=== PATIENT | female | born 2000 | race Caucasian/White ===

== ENCOUNTER 2020-06-29 19:33 | Day surgery (SDC) | payer SELFPAY ==
[2020-06-29 20:03] VITALS: BP 120/62; TEMP 98.4; BMI 22.6
[2020-06-29] MEDS ORDERED: hydrALAZINE 20 MG/ML VIAL SLOW IVP PRN (20:34)
[2020-06-29] MEDS ORDERED: Lactated Ringer's 1,000 ML IV SCH ×2 (21:00)
[2020-06-29 21:15] LABS: Bilirubin Negative (Negative); Blood, Urine Negative (Negative); Clarity Clear (Clear); Glucose, Urine (Dipstick) Normal (Negative); Ketone, Urine 10 mg/dL (Negative); Leukocyte 250 Leu/uL (Negative); Nitrite Negative (Negative); Protein, Urine (Dipstick) Negative (Neg-Trace); RBC/HPF 0-3 HPF (0-3); Renal Epithelial 0-3 HPF (None Seen); Squamous Epithelial 0-3 HPF (0-3); Urobilinogen Normal mg/dL (Less than 2); WBC/HPF 21-50 HPF (0-3)
[2020-06-29 21:22] LABS: Bacteria/HPF 1+ HPF (None Seen)
[2020-06-29 21:38] LABS: FFN Internal QC Analyzer PASS (PASS); FFN Internal QC Cassette PASS (PASS); Fetal Fibronectin Negative (Negative)
[2020-06-29] MEDS ORDERED: ceFAZolin 1 GM/D5W 1 GM in Premix Bag 1 BAG IVPB SCH (22:30)
--- NOTE | 2020-06-30 01:19 | SS ---
DATE OF ADMISSION: 06/29/2020 DATE OF DISCHARGE: 06/29/2020 REGULAR PHYSICIAN: Giovanny Lombardo MD EVALUATING PHYSICIAN: Yordan Car MD CHIEF COMPLAINT: Back pain. HISTORY OF PRESENT ILLNESS: Ms. Giordano is a 19-year-old white G5, P1, AB3 with an estimated date of confinement of 09/06/2020, who presents complaining of intermittent back pain since 3 p.m. She denies associated loss of fluid or vaginal bleeding. She was seen in [facility] and evaluated there and then came here by private automobile. Of note is the fact that she has had a single OB visit with Dr. Lombardo where she was given an antibiotic for a UTI but has not had it filled. PAST OBSTETRICAL HISTORY: Includes one previous section at 36 weeks reportedly with an with gastroschisis. She also reports she has had three early miscarriages. PAST MEDICAL HISTORY: None. PAST SURGICAL HISTORY: x1, as above. CURRENT MEDICATIONS: vitamins. ALLERGIES: NO KNOWN ALLERGIES. SOCIAL HISTORY: She smokes half a package per day. She denies alcohol or illicit drug use. FAMILY HISTORY: Unremarkable. REVIEW OF SYSTEMS: Denies nausea, vomiting, fever, chills, ruptured membranes, or vaginal bleeding. PHYSICAL EXAMINATION: VITAL SIGNS: In triage, her vital signs are stable and she is afebrile. GENERAL: She is pleasant and in no distress. ABDOMEN: Soft, nontender, and gravid. PELVIC: Examination shows the cervix to be closed, 50%, and posterior. heart rate tracing is stable with no decelerations. Initially, irregular uterine contractions were seen. LABORATORY DATA: Urinalysis shows a specific gravity of 1.010 with trace ketones, positive leukocyte esterase. On microscopic, she has had 0-3 squamous cells with 0-3 red cells and 21-50 WBCs with 1+ bacteria. The patient is given a fluid bolus and she was also given 1 g of Ancef IV. After administration of IV fluids, no significant contractions were seen. ASSESSMENT: 1. 30-1/7 weeks intrauterine . 2. Previous section. 3. Urinary tract infection. 4. Smoker. PLAN: The patient will be dismissed to home. The patient states that she was given antibiotics at Dr. Lombardo's office, but she is yet to have them filled for urinary tract infection. She was told to fill these as soon as possible and to begin the regimen. She was also cautioned regarding her smoking and was encouraged to stop. labor precautions were reviewed with her in detail. She states she has an appointment with Dr. Lombardo in the next week. Job ID: [id number] MTDD
== END 2020-06-29 22:47 | disposition home or self-care (01) ==
LOC: L&D/OP 19:33
PROVIDERS: ATTEND Family Medicine
DX: O99.891 Other specified diseases and conditions complicating pregnancy (principal); M54.5 Low back pain; O23.43 Unspecified infection of urinary tract in pregnancy, third trimester; O99.333 Smoking (tobacco) complicating pregnancy, third trimester; F17.210 Nicotine dependence, cigarettes, uncomplicated; O09.293 Supervision of pregnancy with other poor reproductive or obstetric history, third trimester; O34.219 Maternal care for unspecified type scar from previous cesarean delivery; Z3A.30 30 weeks gestation of pregnancy
CPT/HCPCS: 81003; 81015; 82731; 87086; 96361; 96365; 99284; J0690

== ENCOUNTER 2020-08-01 21:31 | Day surgery (SDC) | payer OTHER ==
[2020-08-01 22:23] VITALS: BP 113/59; TEMP 98.8; BMI 27.1
[2020-08-01] MEDS ORDERED: hydrALAZINE 20 MG/ML VIAL SLOW IVP PRN (22:59)
--- NOTE | 2020-08-01 23:02 | PDOC.FPROB ---
FMR OB H&P: HPI - History of Present Illness Chief Complaint: cramping Indentification: 19yo @ 34.6 presents for cramping History of Present Illness: 19yo @ 34.6 presents for cramping. Onset at 0300 last night, q15min cramping/ctx, stopped after a few hours. Onset again this afternoon q8-10min, ending about 1900. No current cramping/ctx. Does endorse lower abd pressure, urinary frequency. Denies dysuria/hematuria. No LOF, VB, VD. Denies fever/chills, n/v, CP, SOB, SINGH, vision changes. No recent intercourse. Primary Care Physician: [facility] H&P: Current - Care : 5 Para: 0131 Gestational age: 34.6 Due date: 09/06/20 - OB Labs Blood type: O RH: positive Antibody Screen: negative HIV: negative RPR: negative HepBsAg: negative Rubella: immune Urine drug screen: negative Gonorrhea: negative Chlamydia: negative 1 hour gtt: 99 GBS: positive [facility] OB H&P: History - Past Medical History PMH: Denies - OB History OB History: 3 spontaneous Ab's. delivery pLTCS for baby with gastroschisis. - [employer] History [employer] History: Denies - Surgical History Sx History: pLTCS - Social History Social History: Previous tob use during , has since quit. No EtOH or illicits. - Family History Family History: Denies [facility] OB H&P: Medications - Current Home Medications: Medication Instructions Recorded Confirmed Type Pnv No.103/Folic/Om3s/Fish Oil 1 tab PO DAILY 06/29/20 08/01/20 History [ Gummies] Allergies/Adverse Reactions: Allergies Allergy/AdvReac Type Severity Reaction Status Date / Time No Known Allergies Allergy Verified 08/01/20 22:16 [facility] OB H&P: ROS - Review of Systems General: denies: fever/chills, weight/appetite/sleep changes Eyes: denies: vision changes ENT: denies: nasal congestion, sore throat Cardiovascular: denies: chest pain Respiratory: denies: cough, congestion, shortness of breath Gastrointestinal: reports: cramping. denies: abdominal pain, nausea, vomiting, diarrhea, constipation Genitourinary (Female): reports: polyuria, contractions. denies: dysuria, hematuria, vaginal discharge, vaginal bleeding Musculoskeletal: denies: pain Integumentary: denies: rash [facility] OB H&P: Vital Signs - Maternal Vital signs: Vital Signs - First Documented Temp Pulse Resp BP 98.8 F 92 18 113/59 L 08/01/20 22:14 08/01/20 22:14 08/01/20 22:14 08/01/20 22:14 - Heart Tones Baseline: 130 Variability: moderate Acceleration: present Deceleration: absent Category: category 1 Snover contractions every: none FMR OB H&P: Physical Exam - Physical Exam General: NAD, awake, alert and oriented HEENT: MMM Neck: supple, trachea midline Heart: RRR, normal S1/S2, no murmurs/rubs/gallops, no edema General: CTAB, no respiratory distress, good air movement, no rales/rhonchi, no wheezing Abdomen: soft, gravid, non-tender, bowel sound present Musculoskeletal: FROM in all four extremities Neurological: no focal deficit Psychiatric: intact recent and remote memory, good judgement and insight, normal mood and affect - Pelvic Exam SVE: cl/th/high [facility]MR OB H&P: A/P - Problem List (1) Cramping affecting , antepartum Current Visit: Yes Status: Acute Code(s): O26.899 - OTH RELATED CONDITIONS, UNSPECIFIED TRIMESTER; R10.9 - UNSPECIFIED ABDOMINAL PAIN Disposition: 19yo @ 34.6 presents for cramping. #, SIUP, cramping - Planned rLTCS - Reassuring FHT, no ctx - Sxs of lower pelvic pressure, urinary frequency - will obtain UA - No recent intercourse, no change in VD - SVE closed/thick/high - No evidence of labor PCP: [facility]: No evidence of labor. Will check UA for UTI. Anticipate discharge home with labor precautions. Discussion: Date/Time: 08/01/20 2968 This H&P was discussed with Dr. Andrade who agrees with the above documentation and plan.
[2020-08-01 23:06] LABS: Bacteria/HPF None Seen HPF (None Seen); Bilirubin Negative (Negative); Blood, Urine Negative (Negative); Clarity Turbid (Clear); Glucose, Urine (Dipstick) Normal (Negative); Ketone, Urine Negative (Negative); Leukocyte 25 Leu/uL (Negative); Nitrite Negative (Negative); Protein, Urine (Dipstick) 20 mg/dL (Neg-Trace); RBC/HPF 0-3 HPF (0-3); Specific Gravity, Urine 1.021 (1.002-1.036); Squamous Epithelial 0-3 HPF (0-3); Urobilinogen 3 mg/dL (Less than 2); pH, Urine 6.5 (5.0-9.0)
--- NOTE | 2020-08-01 23:10 | PDOC.BPN ---
- Brief Progress Note Patient seen at bedside. I have dictated the H&P.
--- NOTE | 2020-08-01 23:20 | PDOC.BPN ---
- Brief Progress Note Encounter Date: 08/01/20 Encounter Time: 23:18 19yo @ 34.6 presented for cramping. #, SIUP, cramping - Planned rLTCS - Reassuring FHT, no ctx - Sxs of lower pelvic pressure, urinary frequency - UA positive for WBC and LE. Negative bacteria. SG 1.021. Encourage hydration, antibiotics, UCx. - No recent intercourse, no change in VD - SVE closed/thick/high - No evidence of labor PCP: [facility]: No evidence of labor. UA suspicious for UTI. All drug allergies. Macrobid sent in. Urine Culture ordered. Will call back to L&D for UCx results in 2 days. Labor and return precautions given. Patient voiced understanding and agreement. Eager for discharge home. All questions answered. Plan discussed with Dr. Andrade who agrees with the above documentation and plan.
--- NOTE | 2020-08-01 23:27 | PDOC.BPN ---
- Brief Progress Note Suspect UTI on UA. RX and send for culture. Follow up with
--- NOTE | 2020-08-01 23:36 | HP ---
TIME OF EVALUATION: 22:50. LOCATION: Labor and Delivery Triage. (LDR 2) This is a patient of Dr. Ba. EGA is 34 weeks and 6 days. CHIEF COMPLAINT: Pelvic pressure, but no real contractions. HISTORY OF PRESENT ILLNESS: This is a 19-year-old, G5, P1 with 3 previous spontaneous miscarriages, who is at 34 weeks and 6 days. She is here for lower pelvic pressure and a little bit of urinary frequency, but no real dysuria. She denies any fevers at home, vaginal bleeding, or leakage of fluid. She has some mild cramping, but denies any real contractions. She states that she had a in the past for gastroschisis and that baby is doing well. She denies any sick contacts or recent intercourse. She has good movement. REVIEW OF SYSTEMS: GENERAL: She denies trauma or any general malaise or sick contacts. RESPIRATORY: No shortness of breath. CHEST: No chest pain. ABDOMEN: No GI issues. EXTREMITIES: No unusual pain in the extremities or unusual swelling. OB: She has had 3 spontaneous miscarriages and one C section for gastroschisis. She is at 34 weeks and [address] Lombardo for care. She desires a repeat for this child and she has discussed that with Dr. Lombardo. PAST MEDICAL HISTORY: Negative. MEDICATIONS: vitamins. ALLERGIES: NONE. SURGICAL HISTORY: A for gastroschisis as previously dictated. SOCIAL HISTORY: Negative for alcohol, tobacco, and drug use. FAMILY HISTORY: Noncontributory. PHYSICAL EXAMINATION: VITAL SIGNS: Her blood pressure is 113/59, pulse is 82, temperature is 99. GENERAL: She is in no acute distress and resting comfortably. She does not appear to be in labor. ABDOMEN: Soft, nontender, and gravid and size consistent with dates. PELVIC: Exam shows no overt evidence of bleeding or leakage of fluid. : Cervical exam was performed by Jovana, the patient's nurse, while I was at bedside. She found her to be closed to fingertip at most, thick, and still high with no gross evidence of leakage. On external monitor, heart tones were reviewed by me and there was great variability with large accelerations. There was a moment of prolonged accelerations for about 6 to 7 minutes and then returned back down to baseline to about 140s to 150s, but there is no pathological deceleration. There is no real contractions on tocodynamometer, so the nonstress test is reactive. INTERVENTIONS ORDERED: I have ordered urinalysis and patient requests clean-catch instead of a cath. ASSESSMENT: 19-year-old, G5, P1, SAB 3 at 34 weeks and 6 days with a history of a previous section for gastroschisis here for lower pelvic pressure, but no real symptoms of contraction. PLAN: 1. I did not order a cervical length ultrasound as she is already close to 35 weeks and I do not suspect labor. 2. Cervix is closed. 3. I have ordered urinalysis and we will treat accordingly. 4. Follow up with Dr. Lombardo. Job ID: [id number]
== END 2020-08-01 23:22 | disposition home or self-care (01) ==
LOC: L&D/OP 21:31
PROVIDERS: ATTEND Family Medicine
DX: O26.893 Other specified pregnancy related conditions, third trimester (principal); R10.2 Pelvic and perineal pain; R35.0 Frequency of micturition; O09.293 Supervision of pregnancy with other poor reproductive or obstetric history, third trimester; O09.213 Supervision of pregnancy with history of pre-term labor, third trimester; O34.211 Maternal care for low transverse scar from previous cesarean delivery; Z3A.34 34 weeks gestation of pregnancy
CPT/HCPCS: 81001; 87086; 99283

== ENCOUNTER 2020-08-31 12:49 | Inpatient (IN) | payer OTHER ==
[2020-08-31] MEDS: Lactated Ringer's 1,000 ML IV SCH ×2 (12:45→23:21)
[~2020-08-31 12:49] MED LIST: Bicitra 30 ML UDCUP PO PRN; Famotidine/PF 20 mg/2ml Vial SLOW IVP PRN; Ondansetron PF 4 MG/2 ML Vial IVP PRN; Promethazine HCl 25 MG/ML VIAL IM PRN; hydrALAZINE 20 MG/ML VIAL SLOW IVP PRN
[2020-08-31] MEDS ORDERED: CEFAZOLIN 2 GM in Premix Bag 1 BAG IVPB SCH (13:15)
[2020-08-31 13:20] LABS: Hemoglobin 9.6 g/dL (12.0-16.0); Mean Corpuscular HGB CONC 33.2 g/dL (32.0-36.0); Mean Corpuscular Hemoglobin 25.1 pg (25.0-35.0); Mean Corpuscular Volume 75.6 fL (78.0-98.0); Mean Platelet Volume 10.5 fL (7.4-10.4); Platelet Count 177 thou/uL (130-400); RBC Distribution Width 14.8 % (11.5-14.5); Red Blood Cell (RBC) Count 3.81 mill/uL (4.00-5.20); White Blood Cell (WBC) Count 12.1 thou/uL (4.8-10.8)
[2020-08-31 13:58] LABS: HBSAg Index 0.25 S/CO (0-0.99); Hep B Surf Ag Non-Reactive S/CO (NonReactive)
[2020-08-31 14:01] LABS: Syphilis Antibody Nonreactive (Nonreactive); Syphilis Antibody Index 0.02 S/CO (<1.00 Non-Reactive)
[2020-08-31 14:15] VITALS: BMI 28.1
[2020-08-31] MEDS ORDERED: Oxytocin 10 UNITS/ML VIAL ONE (15:00)
[2020-08-31] MEDS ORDERED: Ketorolac Tromethamine 30 MG/ML VIAL ONE (15:00)
[2020-08-31] MEDS ORDERED: Ondansetron PF 4 MG/2 ML Vial ONE (15:00)
[2020-08-31] MEDS ORDERED: Dexamethasone 4 mg/ml Vial ONE (15:00)
[2020-08-31] MEDS ORDERED: Morphine PF 10 MG/10 ML VIAL ONE (15:00)
[2020-08-31] MEDS ORDERED: ePHEDrine 50 MG/ML VIAL ONE (15:00)
[2020-08-31] MEDS ORDERED: Meperidine HCl/PF 25 MG/ML VIAL SLOW IVP PRN ×2 (15:05→16:58)
[2020-08-31] MEDS ORDERED: Ketorolac Tromethamine 30 MG/ML VIAL IVP PRN (15:05)
[2020-08-31] MEDS ORDERED: Naloxone HCl 0.4 mg/ml Vial IVP PRN ×2 (15:05)
[2020-08-31] MEDS ORDERED: Ondansetron PF 4 MG/2 ML Vial IVP PRN ×2 (15:05→18:18)
[2020-08-31] MEDS ORDERED: Naloxone HCl 0.4 mg/ml Vial IV PRN (15:05)
[2020-08-31] MEDS ORDERED: HYDROmorphone 2 MG/ML VIAL SLOW IVP PRN ×2 (15:05→16:58)
[2020-08-31] MEDS ORDERED: Promethazine HCl 25 MG/ML VIAL IM PRN ×2 (15:05→18:18)
[2020-08-31] MEDS ORDERED: Ondansetron HCl/PF 4 MG/2 ML Vial IVP PRN ×2 (15:05→16:58)
[2020-08-31] MEDS ORDERED: Promethazine HCl 25 MG SUPP PR PRN (15:05)
[2020-08-31] MEDS ORDERED: diphenhydrAMINE 50 MG/ML VIAL IVP PRN (15:05)
[2020-08-31] MEDS ORDERED: L&D-Morphine 4 MG/ML VIAL SLOW IVP PRN ×2 (15:05→16:58)
[2020-08-31] MEDS ORDERED: Ketorolac Tromethamine 30 MG/ML VIAL IVP SCH ×2 (15:15→17:00)
[2020-08-31] MEDS ORDERED: Communication Order-Pharmacy FS SCH (15:15)
[2020-08-31] MEDS ORDERED: PHENYLEPHRINE-NS 100 MCG/ML 10 ML SYRINGE ONE (15:49)
[2020-08-31] MEDS ORDERED: NS w/ Oxytocin 30 units 500 ML ONE (17:30)
[2020-08-31] MEDS ORDERED: diphenhydrAMINE 50 MG/ML VIAL ONE (18:01)
[2020-08-31] MEDS ORDERED: Meperidine HCl/PF 25 MG/ML VIAL IM PRN (18:18)
[2020-08-31] MEDS ORDERED: NS / Oxytocin 40 units/1000ml 1,000 ML IV SCH (18:18)
[2020-08-31] MEDS ORDERED: hydrALAZINE 20 MG/ML VIAL SLOW IVP PRN (18:18)
[2020-08-31] MEDS ORDERED: Bisacodyl 10 MG SUPP PR PRN (18:18)
[2020-08-31] MEDS ORDERED: Lanolin Ointment 7 GM TUBE TOP PRN (18:18)
[2020-08-31] MEDS ORDERED: HYDROcodone/Acetaminophen 5/325 mg Tablet PO PRN (18:18)
[2020-08-31] MEDS ORDERED: diphenhydrAMINE 25 MG CAP PO PRN (18:18)
--- NOTE | 2020-08-31 19:11 | OP ---
DATE OF PROCEDURE: 08/31/2020 RESIDENT: Huong Mccoy MD. PROCEDURE: Repeat low-transverse section. PREOPERATIVE DIAGNOSES: 1. Term intrauterine . 2. Previous section. POSTOPERATIVE DIAGNOSES: 1. Term intrauterine , delivered. 2. Previous section. ANESTHESIA: Spinal QUANTITATIVE BLOOD LOSS: 189 mL SPECIMENS: Cord blood for blood type. FINDINGS: Placenta intact with three-vessel cord noted, discarded. Viable male with Apgars of 8 and 9 at one and five minutes of life respectively. Normal uterus, tubes, and ovaries. DRAINS: Moran to gravity draining clear urine. INDICATIONS: A 19-year-old, G5?, P0-1-0-1, at 39 and 1 weeks' gestation, presents to Labor and Delivery for scheduled repeat section. PROCEDURE IN DETAIL: After risks, benefits, and alternatives were explained to the patient, she gave informed consent. Preoperative antibiotics included cefazolin 2 g IV. The patient was taken to the operating room, where spinal anesthesia was initiated. She was placed in a supine position with a left tilt. She was prepped and draped in the usual sterile fashion. A time-out was performed per protocol. A Pfannenstiel incision was made with a scalpel and carried down to the level of the fascia, which was sharply nicked. Isaac clamps were used to elevate the fascia superiorly and inferiorly, and the rectus muscles were sharply and bluntly dissected free. The rectus muscles were dissected bluntly and manually. The peritoneum was entered bluntly and retracted manually. Bladder blade was placed. A low-transverse uterine incision was made using a scalpel. The uterus was entered bluntly in the midline, and light meconium-stained fluid was observed. The was noted to be vertex and delivered easily by fundal pressure. The was stimulated; mouth and nares were bulb suctioned. Cord was clamped and cut. Cord blood was collected. The was taken to the warmer to awaiting team. The placenta was delivered by cord traction and fundal massage. The uterus was exteriorized. The endometrium was curetted with a dry lap. The edges of the hysterotomy were clamped, and the hysterotomy was closed using two ligatures of 1 Monocryl. Hemostasis was noted. Three interrupted imbricating sutures were sewn over the hysterotomy to strengthen the thin lower uterine segment with 1 Monocryl. The abdomen was irrigated and suctioned free of clots anteriorly and posteriorly. Seprafilm was placed over the hysterotomy and anterior portion of the uterus. The uterus was returned to the abdomen and again noted to be hemostatic. Peritoneum was closed using 3-0 Vicryl in a running nonlocking fashion. The fascia and rectus muscles were inspected for bleeders and cauterized. The fascia was closed with 1 PDS in a running nonlocking fashion. The subcutaneous space was irrigated with sterile saline. The subcutaneous space was closed with 3-0 Vicryl using 3 interrupted sutures. The skin was closed with audrey. The patient tolerated the procedure well. All counts were correct. The patient went to recovery for routine care. Job ID: [id number] [facility]
[2020-08-31] MEDS ORDERED: NS w/ Oxytocin 30 units 500 ML IV SCH (19:15)
[2020-08-31] MEDS ORDERED: Ferrous Sulfate 325 MG TAB PO SCH (19:15)
[2020-08-31] MEDS: Ketorolac Tromethamine 30 MG/ML VIAL IVP SCH (23:21)
[2020-09-01] MEDS: Docusate Calcium (SURFAK) 240 MG CAP PO SCH ×3 (04:14→22:29)
[2020-09-01] MEDS: Ketorolac Tromethamine 30 MG/ML VIAL IVP SCH ×3 (06:35→18:06)
[2020-09-01 07:22] LABS: Hemoglobin 8.6 g/dL (12.0-16.0); Mean Corpuscular HGB CONC 32.7 g/dL (32.0-36.0); Mean Corpuscular Hemoglobin 25.2 pg (25.0-35.0); Mean Corpuscular Volume 77.2 fL (78.0-98.0); Mean Platelet Volume 10.3 fL (7.4-10.4); Platelet Count 140 thou/uL (130-400); RBC Distribution Width 14.3 % (11.5-14.5); Red Blood Cell (RBC) Count 3.39 mill/uL (4.00-5.20); White Blood Cell (WBC) Count 12.6 thou/uL (4.8-10.8)
[2020-09-01] MEDS ORDERED: Adacel (T-DAP) 0.5 ML SYRINGE IM ONE (09:00)
[2020-09-01] MEDS: Prenatal Vitamin 1 TAB PO SCH (09:28)
[2020-09-01] MEDS: Simethicone Chewable 80 MG TAB PO PRN ×2 (09:28→22:28)
[2020-09-01] MEDS: Ferrous Sulfate 325 MG TAB PO SCH ×2 (09:28→17:49)
[2020-09-01] MEDS: HYDROcodone/Acetaminophen 5/325 mg Tablet PO PRN ×3 (13:40→22:30)
[2020-09-01] MEDS: Ibuprofen 800 MG TAB PO SCH (22:29)
[2020-09-02] MEDS: Ibuprofen 800 MG TAB PO SCH (05:49)
[2020-09-02] MEDS: Simethicone Chewable 80 MG TAB PO PRN ×2 (05:52→07:31)
[2020-09-02] MEDS ORDERED: Ibuprofen 800 MG TAB PO SCH (06:00)
[2020-09-02] MEDS: Prenatal Vitamin 1 TAB PO SCH (07:30)
[2020-09-02] MEDS: Ferrous Sulfate 325 MG TAB PO SCH (07:31)
[2020-09-02] MEDS: Docusate Calcium (SURFAK) 240 MG CAP PO SCH (07:31)
[2020-09-02] MEDS: HYDROcodone/Acetaminophen 5/325 mg Tablet PO PRN (07:31)
[2020-09-02 10:02] VITALS: BP 134/72; TEMP 97.6
== END 2020-09-02 10:30 | disposition home or self-care (01) | DRG 788 ==
LOC: L&D-LIB 12:49 → 3SW 18:48
PROVIDERS: ADMIT Family Medicine; ATTEND Family Medicine
PROC: 10D00Z1 Extraction of Products of Conception, Low, Open Approach (ICD-10-PCS; principal; 2020-08-31)
DX: O34.211 Maternal care for low transverse scar from previous cesarean delivery (principal); Z3A.39 39 weeks gestation of pregnancy; Z37.0 Single live birth
CPT/HCPCS: 36415; 51702; 85027; 86780; 86850; 86900; 86901; 87340; 99285; J0690; J1100; J1200; J1885; J2270; J2405; J2590; J3490; Q0163